=== PATIENT | female | born 1965 | race Two or more races ===

== ENCOUNTER 2017-10-17 22:27 | Emergency (ER) | payer OTHER ==
[~2017-10-17] VITALS: Ht 165.1 cm; Wt 80.7 kg
[~2017-10-17 22:27] MED LIST: ANTIVERT25 M1 PO; KETO10TA2 PO; ORPH100T PO; TUSSI-PRES LIQ118 ML PO
[2017-10-18] MEDS ORDERED: KETO10TA2 PO (02:45)
== END 2017-10-18 02:40 | disposition home or self-care (01) ==
LOC: ER 22:27
DX: H57.13 Ocular pain, bilateral (principal); R51 Headache; R20.2 Paresthesia of skin

== ENCOUNTER 2017-12-27 09:18 | Outpatient (CLI) | payer OTHER | END 2017-12-27 15:11 | disposition home or self-care (01) | LOC: MAMO-SONO 09:18 | DX: Z12.31 Encounter for screening mammogram for malignant neoplasm of breast (principal) ==

== ENCOUNTER 2019-04-05 16:56 | Emergency (ER) | payer OTHER ==
[~2019-04-05] VITALS: Ht 167.6 cm; Wt 79.4 kg
== END 2019-04-05 18:50 | disposition home or self-care (01) ==
LOC: ER 16:56
DX: S90.112A Contusion of left great toe without damage to nail, initial encounter (principal); W22.8XXA Striking against or struck by other objects, initial encounter; Y93.89 Activity, other specified; Y92.89 Other specified places as the place of occurrence of the external cause; Y99.8 Other external cause status

== ENCOUNTER 2019-04-15 08:10 | Outpatient (CLI) | payer OTHER | END 2019-04-15 08:18 | disposition home or self-care (01) | LOC: MAMO-SONO 08:10 | DX: Z12.31 Encounter for screening mammogram for malignant neoplasm of breast (principal); Z87.898 Personal history of other specified conditions; N64.4 Mastodynia; R07.82 Intercostal pain ==

== ENCOUNTER 2019-05-04 07:30 | Outpatient (CLI) | payer OTHER | END 2019-05-04 08:30 | disposition home or self-care (01) | LOC: SONOGRAMA 07:30 → MAMO-SONO 05-05 07:15 | DX: E04.1 Nontoxic single thyroid nodule (principal); E06.3 Autoimmune thyroiditis; M81.0 Age-related osteoporosis without current pathological fracture; E55.9 Vitamin D deficiency, unspecified ==

== ENCOUNTER 2020-07-28 08:13 | Emergency (ER) | payer OTHER ==
[~2020-07-28] VITALS: Ht 167.6 cm; Wt 77.1 kg
== END 2020-07-28 13:29 | disposition home or self-care (01) ==
LOC: ER 08:13
DX: K29.70 Gastritis, unspecified, without bleeding (principal)

== ENCOUNTER 2023-07-22 18:58 | Emergency (ER) | payer OTHER ==
[~2023-07-22] VITALS: Ht 165.1 cm; Wt 75.3 kg
[2023-07-23 03:02] LABS: HEMATOCRIT 39.9 % (36.0-45.00); HEMOGLOBIN 13.5 g/dL (12.0-15.00); MEAN CELL VOLUME 89.8 fL (80.00-100.00); MEAN CORPUSCULAR HEMOGLOBIN 30.3 pg (27.00-32.0); MEAN CORPUSCULAR HGB CONC 33.8 g/dl (32.0-36.0); PLATELET COUNT 328 K/uL (150-450); RED BLOOD COUNT 4.45 M/uL (4.00-6.00); RED CELL DISTRIBUTION WIDTH 13.7 % (11.5-14.5)
[2023-07-23 03:19] LABS: ALBUMIN 4.2 gm/dL (3.4-5.0); BILIRUBIN TOTAL 0.25 mg/dL (0.3-1.2); CALCIUM 9.7 mg/dL (8.5-10.1); CREATININE SERUM 0.75 mg/dL (0.55-1.02); GFR 79.93; GLOBULINA 3.8 G/DL (2.4-3.5); POTASSIUM 3.98 mEq/L (3.5-5.1)
== END 2023-07-23 05:49 | disposition home or self-care (01) ==
LOC: ER 18:59
DX: R00.2 Palpitations (principal)

== ENCOUNTER 2025-01-13 16:48 | Emergency (ER) | payer OTHER ==
[~2025-01-13] VITALS: Ht 165.1 cm; Wt 76.2 kg
[2025-01-13 18:03] VITALS: BP 110/69; O2SAT 98
[2025-01-13] MEDS ORDERED: KETOROLAC TROMETHAMINE 30 MG VIAL IM STA (19:43)
[2025-01-13] MEDS ORDERED: ORPHENADRINE CITRATE 30 MG/ML AMPUL IM STA (19:45)
[2025-01-13] MEDS ORDERED: ORPHENADRINE CITRATE 30 MG/ML AMPUL ONE (20:02)
[2025-01-13] MEDS ORDERED: KETOROLAC TROMETHAMINE 30 MG VIAL ONE (20:02)
[2025-01-13 20:19] LABS: BASO % 0.2 % (0.1-1.2); EOS # 0.01 (0.04-0.54); EOS % 0.1 % (0.7-7.0); LYMPH # 1.23 (1.18-3.74); LYMPH % 10.8 % (19.3-53.1); MEAN PLATELET VOLUME 9.90 fl (9.4-12.4); MONO # 0.28 (0.24-0.82); MONO % 2.5 % (4.7-12.5); NEUT # 9.82 (1.56-6.13); NEUT % 86.1 % (34.0-71.1); RED CELL DISTRIBUTION WIDTH 13.1 % (11.6-14.4)
[2025-01-13 20:29] LABS: URINE APPEARANCE Clear; URINE BILIRRUBIN Negative (NEGATIVE); URINE BLOOD Negative; URINE COLOR Yellow; URINE GLUCOSE Negative (NEGATIVE); URINE KETONE Trace (NEGATIVE); URINE LEUKOCYTE Trace; URINE NITRATE Positive; URINE PROTEIN Negative (NEGATIVE); URINE UROBILINOGEN 0.2 E.U./dl
[2025-01-13 20:33] LABS: URINE EPITHELIAL CELLS 5.6 uL (0.0-38.8); URINE WBC 24.1 uL (0.0-23.2)
[2025-01-13 20:38] LABS: URINE BACTERIA > 9821.5 uL (0.0-1933); URINE CAST 0.14 uL (0.0-1.40); URINE RBC 0.7 uL (0.0-20.8)
[2025-01-13 20:43] LABS: ALT/SGPT 35.0 U/L (12-78); AST/SGOT 26.0 U/L (15-37); BILIRUBIN TOTAL 0.37 mg/dL (0.3-1.2); BUN CREA RATIO 12.0 (7.0-25.0); CREATININE SERUM 0.74 mg/dL (0.55-1.02); GFR 80.89; GLOBULINA 3.8 G/DL (2.4-3.5); GLUCOSE FASTING 147.0 mg/dL (65-100); OSMOLALITY SERUM 284.0 MOSM/KG (275-295)
== END 2025-01-13 21:41 | disposition home or self-care (01) ==
LOC: ER 17:28
PROVIDERS: General Practice
DX: N39.0 Urinary tract infection, site not specified (principal); L50.9 Urticaria, unspecified